=== PATIENT | male | born 1945 | race Caucasian/White ===

== ENCOUNTER 2024-06-06 13:55 | Emergency (ER) | payer MEDICARE, SELFPAY ==
--- NOTE | ~2024-06-06 | XR_ITS ---
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 Uncertain age. Overlying soft tissue edema and deformity. No dislocation. There is a 2 mm foreign body or calcification adjacent to the 2nd metacarpophalangeal joint. Mild arthritic change. No erosions. IMPRESSION: 1. There is a fracture of an osteophyte at the base of the 3rd distal phalanx of uncertain age. 2. There is a 2 mm foreign body or calcification adjacent to the 2nd metacarpophalangeal joint. This document has been electronically signed by: Larissa Nick MD on 06/06/2024 15:29:56
[2024-06-06 14:04] VITALS: BP 119/74; PULSE 65; RESP 16; TEMP 36.3; O2SAT 97; BMI 25.5
--- NOTE | 2024-06-06 14:04 | ED.GENADULT ---
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 Patient reports that no was caught in the fixture fabricator repairer and he reached his hand in 2 on block it and his finger got stuck. He had two rip his hand away from the snowblower. He reports pain at the base of the 3rd digit. He is right-hand dominant. His tetanus status is unknown. He denies any associated weakness, numbness or tingling of the extremity Related Data Previous Rx's ?Medication ?Instructions ?Recorded cephalexin 500 mg capsule 500 mg PO Q12H #14 caps 06/06/24 Allergies Allergy/AdvReac Type Severity Reaction Status Date / Time No Known Allergies Allergy Verified 06/06/24 14:09 [No Known Allergies*] Review of Systems Review of Systems: Yes all other systems are reviewed and are negative Constitutional: Constitutional: Reports no additional constitutional complaints, Denies body ache(s), Denies chills, Denies fever(s), Denies headache(s) and Denies weakness Eyes: Eyes: Reports no additional eye complaints and Denies change in vision ENT: Reports system reviewed and no additional complaints, except as documented, Denies dizziness, Denies headache(s), Denies nasal congestion, Denies nasal discharge and Denies neck pain Cardiovascular: Cardiovascular: Reports no additional cardiovascular complaints, Denies chest pain, Denies leg edema and Denies dyspnea Respiratory: Respiratory: Reports no additional respiratory complaints, Denies cough and Denies dyspnea Gastrointestinal: Gastrointestinal: Reports no additional gastrointestinal complaints, Denies abdominal pain, Denies diarrhea, Denies nausea and Denies vomiting Genitourinary: Genitourinary: Denies urinary incontinence Musculoskeletal: Musculoskeletal: Reports no additional musculoskeletal complaints, Denies back pain, Denies arthralgias, Denies joint swelling, Denies neck pain, Denies numbness and Denies tingling Integumentary/Breasts: Skin/Breast: Reports system reviewed and no additional complaints, except as docu, Denies rash and Reports wounds Neurologic: Reports system reviewed and no additional complaints, except as documented, Denies Abnormal speech present, Denies dizziness, Denies headache(s), Denies numbness, Denies tingling and Denies weakness PMFSH Past Medical History Attestation statement: The following information was validated with the patient. Source: old records reviewed and nursing notes reviewed Social History Social History Advance Directives: No Advance Directives Information Provided: No Physical Exam ED Vital Signs: Vital Signs - 24 hr 06/06/24 14:04 Temperature 97.4 F Pulse Rate 65 Respiratory Rate 16 Blood Pressure 119/74 Pulse Oximetry 97 Oxygen Delivery Method Room Air BMI result Body Mass Index 25.5 Const General: cooperative, healthy appearing, comfortable and no acute distress Orientation/consciousness: patient oriented x3 Limitations: no limitations HENMT Head: Yes normal to inspection Ears: hearing grossly normal bilaterally General nose exam: Normal external nose present Face and sinus: Yes normal facial exam Mouth: Normal oral and palatal mucosa present Throat: Yes posterior oropharynx normal Eyes General: appearance normal, both eyes and all related structures Pupils: Equal, round and reactive pupils present Neck Neck: Yes normal visual inspection Chest Chest palpation & inspection: normal inspection of the chest Resp Effort & Inspection: normal respiratory effort Auscultation: clear to auscultation bilaterally Cardio Rate: regular rate Rhythm: regular rhythm Peripheral pulses: Peripheral pulses 2+ throughout GI Inspection: Yes normal to inspection Palpation (GI): Soft to palpation and nontender Auscultation: normal bowel sounds Back/Spine/Pelvis Thoracic/Lumbar Spine: thoracic and lumbar spine normal to inspection Skin General skin exam: no rashes or lesions noted Neuro General: patient oriented x3, no focal motor deficits and normal sensation to monofilament Cranial nerves: Yes Equal, round and reactive pupils present Cognition (Neuro): normal cognition Speech: No Abnormal speech present Gait exam (Neuro): Normal gait present Motor exam (neuro): 5/5 motor strength present throughout Extrem Other: At the distal aspect of the left hand 3rd digit there is a proximal nail avulsion and the nail bed is exposed with a laceration along the more proximal aspect and along the medial and lateral nail beds. There is full active and passive range of motion there is distal normal sensation. There is some bleeding but it is well controlled Course Course Course Narrative: RME performed by Joselyn Benavides PA-C. Patient is a 79 year old assigned male at presenting to the emergency department with a left middle and ring finger injury. Patient states that he was trying to un-jam his running fixture fabricator repairer when he used his hand and it got caught. Patient does not know his last tetanus shot. Detailed physical exam and review of systems are deferred to the political reporter. Imaging ordered. Patient placed back in the waiting room pending room availability and results. Reevaluation(s) Reevaluation #1: See procedure note for laceration repair. Patient received digital block for pain control with good affect. His x-ray shows a distal phalanx fracture which I explained to him. There was also foreign body seen at the 2nd digit which he tells me he was aware of from a previous injury. I recommended he return in 7-10 days for a suture removal. We discussed wound care at home. Will put him on prophylactic antibiotics. Reviewed worrisome signs and symptoms of when to return to the emergency room. Comfortable plan for discharge home. Medications Administered Discontinued Medications Generic Name Dose Route Start Last Admin Trade Name Raleighq PRN Reason Stop Dose Admin Lidocaine HCl 2 ml 06/06/24 20:11 06/06/24 20:59 Lidocaine Hcl 1 % Mpf 2 Ml Vial INFILTRATI 06/06/24 20:12 2 ml ONCE ONE Administration Lidocaine HCl 2 ml 06/06/24 20:11 06/06/24 20:59 Lidocaine Hcl 1 % Mpf 2 Ml Vial INFILTRATI 06/06/24 20:12 2 ml ONCE ONE Administration Lidocaine HCl 2 ml 06/06/24 20:11 06/06/24 20:59 Lidocaine Hcl 1 % Mpf 2 Ml Vial INFILTRATI 06/06/24 20:12 2 ml ONCE ONE Administration Procedures Laceration Laceration 1: Site: hand (3d digit) Side (If applicable): left Description: irregular Depth: simple, single layer (involves nail bed) Local Anesthetic: lidocaine 1% Pre-repair: wound explored and irrigated extensively (1 L NS) Skin layer closed with: vicryl Size (cm): 5-0 Number of sutures: 5 Technique: simple, interrupted Nerve Block Nerve Block 1: Local Anesthetic: lidocaine 1% Amount of anesthesia used (mL): 3 Side: left Nerve Blocks: digital Procedure Successful: Yes Patient Tolerated Procedure: well Complications: none Medical Decision Making Medical Decision Making [facility] Narrative: 79-year-old male who has a past medical history asthma presents the ER with complaints of laceration to left 3rd digit from a fixture fabricator repairer.? Patient reports that no was caught in the fixture fabricator repairer and he reached his hand in 2 on block it and his finger got stuck.? He had two rip his hand away from the snowblower.? He reports pain at the base of the 3rd digit.? He is right-hand dominant.? His tetanus status is unknown.? He denies any associated weakness, numbness or tingling of the extremity. At the distal aspect of the left hand 3rd digit there is a proximal nail avulsion and the nail bed is exposed with a laceration along the more proximal aspect and along the medial and lateral nail beds.? There is full active and passive range of motion there is distal normal sensation.? There is some bleeding but it is well controlled Will need x-rays. Will update tetanus. See procedure note for wound repair. Will give 1 dose oral cephalexin Differential Diagnosis Differential Diagnoses: The differential diagnosis associated with the presentation includes Laceration, nail avulsion, tuft fracture. Low suspicion for vascular injury, retained foreign body Admission/Observation Consideration of admission/observation: Escalation of care including admission/observation considered Independent Interpretation I performed an independent interpretation of an: Plain X-Ray Interpretation: I independently reviewed the x-ray and agree with the radiology report Radiology Impression Discussion of test interpretation with radiology: I have reviewed the radiologist's reading. 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 Uncertain age. Overlying soft tissue edema and deformity. No dislocation. There is a 2 mm foreign body or calcification adjacent to the 2nd metacarpophalangeal joint. Mild arthritic change. No erosions. IMPRESSION: 1. There is a fracture of an osteophyte at the base of the 3rd distal phalanx of uncertain age. 2. There is a 2 mm foreign body or calcification adjacent to the 2nd metacarpophalangeal joint. This document has been electronically signed by: Larissa Nick MD on 06/06/2024 15:29:56 Discharge Plan Discharge Clinical Impression: Laceration Patient Disposition: Home, Self-Care Instructions: Finger Laceration (ED) Additional Instructions: Sutures need to be removed in 7-10 days Remove the dressing daily and wash the area gently with soap and water. No soaking in water. Reapply the dressing and use a finger splint daily. Take Motrin or Tylenol if able as needed for pain or fever. Monitor for signs of infection such as redness, drainage, fever, odor and return for these. Your x-ray also shows a foreign body over the 2nd finger which is not likely from today's injury. You can follow up outpatient with the hand surgeon if this causes you pain and you would like it removed. Take the antibiotic as prescribed. Prescriptions: New cephalexin 500 mg capsule 500 mg PO Q12H Qty: 14 0RF Referrals: Baldomero Bowen III, MD [Primary Care Provider] - 1 week Print Language: B[place]
[2024-06-06] MEDS: Lidocaine HCl 1 % MPF 2 ML VIAL INFILTRATI ×3 (20:59)
[2024-06-06] MEDS: Diphth,Pertus(ACell),Tet Adult 0.5 ML SYRINGE IM (21:00)
[2024-06-06] MEDS: cephALEXin 500 MG CAPSULE PO (21:04)
[2024-06-06 21:12] VITALS: BP 148/82; PULSE 70; RESP 16; TEMP 36.4; O2SAT 98
[2024-06-06 21:14] VITALS: BP 148/82; PULSE 70; RESP 16; TEMP 36.4; O2SAT 98
== END 2024-06-06 21:16 | disposition home or self-care (01) ==
PROVIDERS: Emergency Provider Emergency Medicine; PCP Internal Medicine
DX: S61.313A Laceration without foreign body of left middle finger with damage to nail, initial encounter (principal); W31.89XA Contact with other specified machinery, initial encounter; Y93.29 Activity, other involving ice and snow; Y92.038 Other place in apartment as the place of occurrence of the external cause; Y99.9 Unspecified external cause status; Z23 Encounter for immunization
CPT/HCPCS: 12001; 73130; 90471; 90715; 99284; J2003

== ENCOUNTER → 2024-06-06 14:06 | Outpatient (BNV) | payer MEDICARE, SELFPAY | PROVIDERS: PCP Internal Medicine; Visit Provider Radiology Diagnostic Radiology | DX: S62.633A Displaced fracture of distal phalanx of left middle finger, initial encounter for closed fracture (principal) | CPT/HCPCS: 73130 ==